=== PATIENT | male | born 1955 | race Caucasian/White ===

== ENCOUNTER 2016-11-08 20:29 | Emergency (ER) | payer BC ==
[~2016-11-08 20:29] MED LIST: APREMILAST PO; D.O.S.100 MG PO; FLAGYL PO; HYDROCORT12 TOP; MIRALAXPKT PO; MOTRIN IB200 MG PO; NEXIUM40 PO; NO HOME MEDS; PERCOCET1 TA4 PO; ST. JOHN'S300 MG PO; ZYRTEC ALLGY10 MG PO; [UNRECOGNIZED DRUG - OTHER] TOP
== END 2016-11-08 22:27 | disposition home or self-care (01) ==
LOC: ER 20:29
DX: M54.2 Cervicalgia (principal); I10 Essential (primary) hypertension; I48.91 Unspecified atrial fibrillation; K21.9 Gastro-esophageal reflux disease without esophagitis; Z88.2 Allergy status to sulfonamides; Z88.8 Allergy status to other drugs, medicaments and biological substances; Z79.899 Other long term (current) drug therapy
CPT/HCPCS: 72040; 96372; 99283; J2360; J2800